=== PATIENT | male | born 1975 | race Caucasian/White ===

== ENCOUNTER 2020-08-03 05:15 | Day surgery (SDC) | payer MEDICARE ==
[~2020-08-03] VITALS: Ht 172.7 cm; Wt 68.0 kg
--- NOTE | ~2020-08-03 | OP ---
PATIENT NAME: ALLY BUSTILLO JR MEDICAL RECORD: [id number] :73 LOCATION:[facility] ADMISSION DATE: SURGEON: YVAN NEWTON MD DATE OF OPERATION: 08/03/2020 PREOPERATIVE DIAGNOSIS: Left cheek and left lower face sebaceous cysts, both 4 cm or so in size. POSTOPERATIVE DIAGNOSIS: Left cheek and left lower face sebaceous cysts, both 4 cm or so in size. PROCEDURE: Excision of 2 separate large sebaceous cysts with quite a bit of skin excision due to expansion and to excise all the overlying drainage attachment points of the cyst. SURGEON: Yvan Newton MD ANESTHESIA: General orotracheal. ESTIMATED BLOOD LOSS: 1 cc. SPECIMENS: Left cheek and left jawline cyst with overlying skin. DRAINS: None. COMPLICATIONS: None. DISPOSITION: Recovery, stable. DESCRIPTION OF PROCEDURE: He was brought to the operating room and placed in supine position, sedated and intubated by anesthesia. Head was turned to the left and the left face was prepped and draped in the usual sterile fashion with Betadine. Skin was cleaned off, carefully inspected. Jaw lesion was addressed first. There was an area about the size of a dime or so that was obviously discolored and attached and multiple drainage points there. All that plus a little bit more was excised with an incision that was fairly parallel to the jawline that was marked out and an incision was about 2 cm wide and 4 cm long. Then the other area, there were 3 separate points of skin breakdown about the size of an eraser, each kind of in a triangular pattern, but more vertical and to excise all the skin that was associated with those had to be more of a vertical ellipse. It was just going to take too much skin in the vertical dimension to excise all of those with the same excision, so elliptical area was marked vertically. There to excise all 3 of those points, they were fairly close together again. Again another incision 4-5 cm long and a couple of centimeters wide was marked. Everything was injected with 2 cc of 1% lidocaine with 1:100,000 epinephrine. The lower one was excised first elliptical incision full thickness through the skin and then dissected down to the cyst wall sharply with a knife. The skin was retracted, able to dissect directly on the cyst wall, pulling this out. It was about 3-4 cm in size. The cyst wall excised completely intact with all the overlying skin and no violation of that, which left really clean wound. Then, that was closed with interrupted subcutaneous 4-0 Vicryl. Skin was closed with 5-0 Prolene. The upper area was incised the same way, taken the skin full thickness with a 15 blade and then with retraction, it actually was more like a grape-like cluster of cyst wilson probably again 4 cm almost in total dimension. I dissected out with a knife OPERATIVE REPORT [id number] ALLY BUSTILLO JR directly on the cyst wilson not exercising any fat at all, just taking this all off to preserve any branches of the facial nerve. The mouth was visible in the field. It was very easy to look for any movement. This was all completely dissected out again completely clean and intact, no violation and it was closed with interrupted 4-0 Vicryl careful to reduce any dog ears and a running 5-0 Prolene. No complications. Counts were correct. He was awakened, extubated, and transported to recovery in good condition. No complications. TRANSINT:[id number] Voice Confirmation ID: [id number] DOCUMENT ID: [id number] YVAN NEWTON MD CC: [id number] DICTATION DATE: 08/03/20 0859 WE[employer] CONTROL INSTRUCTOR: 08/04/20 2333 [facility] 08/03/20 [facility] [address] [place] [address]
[~2020-08-03 05:15] MED LIST: HYDROCODONE-AC1 EAC2 PO; SLEEP AID25 M1 PO
[2020-08-03 06:11] VITALS: BP 148/80; Ht 172.7 cm; Wt 68.0 kg
--- NOTE | 2020-08-03 10:24 | HP ---
PATIENT: ALLY BUSTILLO JR MEDICAL RECORD: [id number] ACCOUNT: [id number] LOCATION:[facility] : 73 ADMISSION DATE: 08/03/20 PCP: FRANCES TILLMAN HISTORY AND PHYSICAL EXAMINATION HISTORY OF PRESENT ILLNESS: Mr. Bustillo is 45. He has had an enlarging cyst on the left side of his face, recurrent infection and drainage, previously excised a large cyst off the right side of his face. He has been admitted for excision of multiple large sebaceous cyst of left face. PAST MEDICAL HISTORY: Otherwise negative. PAST SURGICAL HISTORY: Excision of right facial lesion. ALLERGIES: No known drug allergies. PHYSICAL EXAMINATION: GENERAL: Healthy-appearing. FACE: He has got a large mass in the left lower face. The upper one is kind of mid cheek, couple of pores, obviously been a draining, 3-4 cm in size and then there is kind of next to each other, probably multiple cysts, and then left cheek, lower face least 4 cm in size, not currently infected. NECK: No masses. No adenopathy. CHEST: Clear. CARDIOVASCULAR: Regular rate and rhythm, no murmur. EXTREMITIES: Normal. IMPRESSION: Multiple large sebaceous cysts, partially coalesced, mostly with multiple draining sites. PLAN: Excision, he will require at least 2 excisions with probably quite a bit of skin removal. TRANSINT:[id number] Voice Confirmation ID: [id number] DOCUMENT ID: [id number] LESLEY MARIE MD at 1024 CC: [id number] DICTATION DATE: 07/30/20 1045 DIRECTOR MEDICAL ECONOMICS: 07/30/20 [id number] [place] [address]
--- NOTE | 2020-08-03 11:21 | NUR ---
IV D/C'D AT 1000 WITH TIP INTACT. PATIENT UP TO BATHROOM TO VOID AND DRESS FOR DISCHARGE. DISCHARGED VIA WHEELCHAIR TO PRIVATE CAR.
== END 2020-08-03 10:30 | disposition home or self-care (01) ==
LOC: D.OPS 05:15
PROVIDERS: ATTEND Otolaryngology
DX: L72.3 Sebaceous cyst (principal)